=== PATIENT | male | born 1990 | race African-American/Black ===

== ENCOUNTER → 2022-04-16 | Emergency (ER) | payer OTHER ==
[~2022-04-16] VITALS: Ht 188 cm; Wt 108.9 kg
[2022-04-16 17:48] VITALS: BP 148/98
--- NOTE | 2022-04-16 17:55 | NUR ---
spouse wanted to note that pt has specific bug bite that is turning into a clear blister and would like to know what kind of bug bit him. pa notified
--- NOTE | 2022-04-16 23:30 | NUR ---
[facility] ER physician request to bring patient to room, patient name called but no answer from patient.
--- NOTE | 2022-04-17 00:02 | NUR ---
[facility] ER physician request to bring patient to room, patient name called but no answer from patient.
--- NOTE | 2022-04-17 01:20 | NUR ---
[facility] ER physician request to bring patient to room, patient name called but no answer from patient.
--- NOTE | 2022-04-17 01:25 | NUR ---
PATIENT LEFT WITHOUT BEING SEEN BY DR. Obrien. NO FURTHER CARE PROVIDED FOR PATIENT.
== END | disposition home or self-care (01) ==
LOC: MED 17:17
DX: S80.861A Insect bite (nonvenomous), right lower leg, initial encounter (principal); S80.862A Insect bite (nonvenomous), left lower leg, initial encounter; Z53.21 Procedure and treatment not carried out due to patient leaving prior to being seen by health care provider; W57.XXXA Bitten or stung by nonvenomous insect and other nonvenomous arthropods, initial encounter; Y93.89 Activity, other specified; Y92.89 Other specified places as the place of occurrence of the external cause; Y99.8 Other external cause status
CPT/HCPCS: 81002; 99282